=== PATIENT | female | born 1980 | race Caucasian/White ===

== ENCOUNTER → 2017-05-10 | Outpatient (CLI) | payer BC ==
[~2017-05-10] MED LIST: AMBIEN 10 MG TA10 MG PO; BACLOFEN; FENTANYL PA50 MCG/HR TP; LIDODERM TP; OXYCODONE HCL15 MG PO
== END | disposition home or self-care (01) ==
LOC: M.RAD 04-30 14:04
DX: S73.101A Unspecified sprain of right hip, initial encounter (principal); X58.XXXA Exposure to other specified factors, initial encounter; Y93.9 Activity, unspecified; Y92.89 Other specified places as the place of occurrence of the external cause

== ENCOUNTER → 2018-01-17 | Outpatient (CLI) | payer BC | END | disposition home or self-care (01) | LOC: M.MRI 01-14 17:30 → M.RAD 14:28 | DX: M25.512 Pain in left shoulder (principal); Z91.81 History of falling; Z88.0 Allergy status to penicillin; Z88.8 Allergy status to other drugs, medicaments and biological substances; Z79.891 Long term (current) use of opiate analgesic ==

== ENCOUNTER 2018-03-16 13:00 | Emergency (ER) | payer BC ==
[~2018-03-16] VITALS: Ht 165.1 cm; Wt 115.7 kg
[2018-03-16] MEDS ORDERED: XANAX 0.5 MG0.5 MG PO (13:20)
[2018-03-16] MEDS ORDERED: EFFEXOR 5050 MG/1 T1 PO (13:21)
[2018-03-16] MEDS ORDERED: PREDNISONE 20 M20 MG PO (14:57)
[2018-03-16 15:17] VITALS: BP 149/98
== END 2018-03-16 15:18 | disposition home or self-care (01) ==
LOC: M.ERS 13:00
DX: M54.41 Lumbago with sciatica, right side (principal); Z88.1 Allergy status to other antibiotic agents; Z88.0 Allergy status to penicillin; Z88.8 Allergy status to other drugs, medicaments and biological substances

== ENCOUNTER 2019-02-12 15:02 | Emergency (ER) | payer OTHER ==
[~2019-02-12] VITALS: Ht 167.6 cm; Wt 113.4 kg
[~2019-02-12 15:02] MED LIST changes: +EFFEXOR 5050 MG/1 T1 PO; +PREDNISONE 20 M20 MG PO; +XANAX 0.5 MG0.5 MG PO
[2019-02-12] MEDS ORDERED: DEPO-PROVER150 MG/M1 IM (15:16)
[2019-02-12] MEDS ORDERED: PREDNISONE 20 M20 MG PO (15:45)
[2019-02-12] MEDS ORDERED: MAGIC MOUTHWASH SW&SWALLOW (15:45)
[2019-02-12 15:57] VITALS: BP 174/113
== END 2019-02-12 15:58 | disposition home or self-care (01) ==
LOC: M.ERS 15:02
DX: J04.0 Acute laryngitis (principal); J00 Acute nasopharyngitis [common cold]; F32.9 Major depressive disorder, single episode, unspecified; F17.210 Nicotine dependence, cigarettes, uncomplicated; Z88.0 Allergy status to penicillin; Z88.1 Allergy status to other antibiotic agents; Z88.8 Allergy status to other drugs, medicaments and biological substances

== ENCOUNTER 2021-01-03 23:44 | Emergency (ER) | payer OTHER ==
[~2021-01-03] VITALS: Ht 165.1 cm; Wt 129.3 kg
[~2021-01-03 23:44] MED LIST changes: +DEPO-PROVER150 MG/M1 IM; +MAGIC MOUTHWASH SW&SWALLOW
[2021-01-04] MEDS ORDERED: SLYND4 MG PO (00:26)
[2021-01-04 00:55] LABS: URINE BLOOD 3+ (Negative); URINE CLARITY CLOUDY; URINE COLOR RED; URINE GLUCOSE-RANDOM NEGATIVE (Negative); URINE KETONES 1+ (Negative); URINE LEUKOCYTES-REFLEX NEGATIVE (Negative); URINE NITRITE-REFLEX NEGATIVE (Negative); URINE PROTEIN 3+ (Negative); URINE SPECIFIC GRAVITY >= 1.030 (1.005-1.030)
[2021-01-04 00:56] LABS: URINE BILIRUBIN 1+ (Negative)
[2021-01-04 00:58] LABS: ICTOTEST (BILI CONFIRMATORY) Negative (Negative)
[2021-01-04 01:04] LABS: CASTS None Seen /LPF (None Seen); SQUAMOUS NONE SEEN /LPF (0-3); URINE RBC >20 Many /HPF (0-2); URINE WBC-REFLEX 6-15 Few /HPF (0-5)
[2021-01-04 01:05] LABS: BACTERIA-REFLEX 1-9 Few /HPF (None Seen); CRYSTALS None Seen /LPF (None Seen)
[2021-01-04 01:23] LABS: HEMATOCRIT 30.8 % (37.0-47.0); HEMOGLOBIN 10.5 gm/dL (12.0-15.0); MCH 31.4 pg (26.0-34.0); MCV 92.3 fL (80.0-100.0); MPV 8.4 fl. (7.2-11.1); RBC 3.34 mil/uL (4.20-5.00); RDW-CV 12.7 % (10.5-14.5)
[2021-01-04 01:33] LABS: CREATININE 0.9 mg/dL (0.6-1.3); POTASSIUM 4.1 mmol/L (3.5-5.1)
[2021-01-04 01:38] LABS: ALBUMIN 3.6 g/dL (3.4-5.0); TOTAL BILIRUBIN 0.3 mg/dL (<0.1-1.0); TOTAL PROTEIN 7.5 g/dL (6.4-8.2)
[2021-01-04] MEDS ORDERED: PERCOCET 5-3251 EACH PO (05:47)
[2021-01-04] MEDS ORDERED: ZOFRAN ODT4 MG PO (05:47)
[2021-01-04 07:11] VITALS: BP 122/72
== END 2021-01-04 07:12 | disposition home or self-care (01) ==
LOC: M.ERS 23:44
PROVIDERS: Personal Emergency Response Attendant
DX: O03.9 Complete or unspecified spontaneous abortion without complication (principal); Z3A.01 Less than 8 weeks gestation of pregnancy; Z79.899 Other long term (current) drug therapy; Z88.0 Allergy status to penicillin; Z88.9 Allergy status to unspecified drugs, medicaments and biological substances